=== PATIENT | male | born 1990 | race African-American/Black ===

== ENCOUNTER 2021-11-30 23:11 | Emergency (ER) | payer OTHER ==
[2021-11-30 23:48] LABS: Absolute Lymphocytes (CBC) 2.4 K/uL (0.7-4.9); Hematocrit 39.5 % (39.6-49.0); Lymphocytes % 27.8 % (15.3-44.8); MPV 8.7 fL (7.6-11.3); RBC Red Blood Cell Count 4.55 M/uL (4.33-5.43)
[2021-11-30 23:53] LABS: Potassium 3.5 mmol/L (3.5-5.1)
[2021-12-01] MEDS ORDERED: CYCLOBENZAPRINE 10 MG TAB ONE (01:33)
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
[2021-12-01 02:31] VITALS: TEMP 97.9
[2021-12-01 02:33] VITALS: BP 122/76; O2SAT 97
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
== END 2021-12-01 02:25 | disposition home or self-care (01) ==
LOC: ER 23:11
DX: S30.0XXA Contusion of lower back and pelvis, initial encounter (principal); S20.211A Contusion of right front wall of thorax, initial encounter; S06.0X0A Concussion without loss of consciousness, initial encounter; V86.59XA Driver of other special all-terrain or other off-road motor vehicle injured in nontraffic accident, initial encounter; Y92.832 Beach as the place of occurrence of the external cause
CPT/HCPCS: 85025; 80048; 36415; 70450; 72125; 71260; 74177; 99284; Q9967